=== PATIENT | male | born 1955 | race Caucasian/White ===

== ENCOUNTER → 2020-12-02 | Outpatient (CLI) | payer MEDICARE, OTHER ==
--- NOTE | 2020-12-02 15:41 | KCIC ---
PQRS Compliance Statement: One or more of the following individualized dose reduction techniques were utilized for this examinat ion: 1. Automated exposure control 2. Adjustment of the mA and/or kV according to patient size 3. Use of iterative reconstruction technique CT LOW DOSE LUNG SCREEN 12/02/2020 9:30 AM Indication: Smoker for 50 years COMPARISON: None available. TECHNIQUE: Multiple axial CT images of the chest were obtained without intravenous contrast utilizing low-dose technique. Coronal and sagittal reformats are provided. FINDINGS: 6 mm solid noncalcified pulmonary nodule identified within the right middle lobe (series 3, image 252 ). 3 mm subpleural solid noncalcified pulmonary nodule identified in the right middle lobe (series 3, image 358). There is an 8 x 6 mm solid noncalcified pulmonary nodule in the left upper lobe (series 3, image 155). 7 mm solid noncalcified pulmonary nodule identified along the left major fissure. Mild paraseptal pulmonary emphysema in the upper lobes. No pleural effusions, pulmonary vascular congesti on or pneumothorax. Mild bronchial wall thickening compatible with nonspecific bronchitis. Thyroid gl and is normal in appearance. Heart size is within normal limits. Three-vessel coronary artery vascula r calcifications are present. Ascending thoracic aorta is normal in caliber. Within the limitations o f a noncontrast examination, there are no pathologically enlarged lymph nodes within the thorax. Left axillary lymph node is mildly rounded measuring 7 mm. Calcified left hilar lymph nodes suggest seque la prior granulomatous exposure. Mild hepatic steatosis. Cholecystectomy changes are present. No susp icious osseous abnormality is identified. IMPRESSION: There is an 8 x 6 mm solid noncalcified pulmonary nodule in the left upper lobe. Lung RADS category 4 A, suspicious. 3 month follow-up low dose chest CT versus PET/CT is recommended. Mild bronchitis and mild pulmonary emphysema compatible with COPD changes. Three-vessel coronary artery vascular calcifications are present. Electronically signed by: Yris Lundberg MD (12/02/2020 3:39 PM) [id number]
== END ==
LOC: KCIC CT 09:31
PROVIDERS: ATTEND Family Medicine
DX: J43.9 Emphysema, unspecified (principal); J40 Bronchitis, not specified as acute or chronic; R91.1 Solitary pulmonary nodule; I25.10 Atherosclerotic heart disease of native coronary artery without angina pectoris; F17.210 Nicotine dependence, cigarettes, uncomplicated; Z71.6 Tobacco abuse counseling
CPT/HCPCS: 71271

== ENCOUNTER → 2021-03-21 | Outpatient (CLI) | payer MEDICARE, OTHER ==
--- NOTE | 2021-03-21 16:13 | KCIC ---
EXAM: Chest CT without intravenous contrast. HISTORY: Cigarette smoking. Lung nodule follow-up. TECHNIQUE: Computed tomographic images of the chest were obtained without contrast. Multiplanar refor matting was performed. *One or more of the following individualized dose reduction techniques were utilized for this examina tion: 1. Automated exposure control. 2. Adjustment of the mA and/or kV according to patient size. 3. Use of iterative reconstruction technique. COMPARISON: 12/02/2020. FINDINGS: There is an 8 mm nodule within the left upper lobe, (series 6, image 76 and 77). This is sl ightly less solid compared to the prior exam. The overall volume is also slightly decreased when allo wing for differences in slice position and measurement technique. There are stable 7 mm and 5 mm nodu les within the left pleural fissure, likely due to fissural lymph nodes. There is a stable 2 mm nodul e within the medial right upper lobe (series 6, image 83). There is a stable 4 mm nodule within the r ight minor pleural fissure, likely a fissural lymph node. There is a stable 2 mm pleural-based nodule within the anterior right middle lobe (series 6, image 168). There is mild emphysema with biapical pleural parenchymal scarring and subpleural bleb formation. The re is no pneumothorax. There are few nonspecific peripheral groundglass opacities which are likely po stinflammatory or postinfectious. There are calcified granulomas. There is stable axillary, a central and hilar lymph nodes. There is no suspicious lymphadenopathy. There is calcified atherosclerotic pl aque involving the coronary arteries. There is a stable mildly dilated ascending aorta measuring 3.9 cm. The gallbladder is surgically absent. There are splenic granulomas. There is no acute finding inv olving the upper abdomen. There is no acute or suspicious osseous finding. IMPRESSION: 1. Multiple pulmonary nodules, the largest of which measures 8 mm within the left upper lobe. This is slightly less solid compared to the prior exam, favoring benignity. Given the nodule size, repeat fo llow-up in 3-6 months is recommended. 2. Multiple additional smaller stable pulmonary nodules, described above. Attention at the time of fo llow-up is recommended. 3. Pulmonary emphysema. 4. Stable mildly dilated ascending aorta measuring 3.9 cm. Electronically signed by: Jennifer Huffman MD (03/21/2021 4:10 PM) [id number]
== END ==
LOC: KCIC CT 15:43
PROVIDERS: ATTEND Internal Medicine Pulmonary Disease
DX: R91.8 Other nonspecific abnormal finding of lung field (principal); J43.9 Emphysema, unspecified; J98.4 Other disorders of lung; I25.10 Atherosclerotic heart disease of native coronary artery without angina pectoris
CPT/HCPCS: 71250

== ENCOUNTER → 2021-10-05 | Outpatient (CLI) | payer MEDICARE, OTHER ==
--- NOTE | 2021-10-06 09:02 | KCIC ---
EXAM: CT CHEST WITHOUT CONTRAST HISTORY: Lung nodule, smoker for 50 years 1 pack per day COMPARISON: Chest radiograph 03/21/2021 TECHNIQUE: Helical CT of the chest performed without contrast. Coronal and sagittal reformats were o btained. One or more of the following individualized dose reduction techniques were utilized for this examinat ion: 1. Automated exposure control 2. Adjustment of the mA and/or kV according to patient size 3. Use of iterative reconstruction technique. FINDINGS: Thyroid gland and thoracic inlet: Normal. Heart and great vessels: The heart is normal in size. There are coronary artery calcifications. The t horacic aorta is normal caliber. Mediastinum and ирина: No mediastinal or hilar lymphadenopathy. Lungs and pleura: The 7 mm semisolid nodule in the left upper lobe abutting a vessel is unchanged (im age 89) . 7 mm and 4 mm solid noncalcified nodule along the left major fissure are unchanged (image 154). A 4 mm solid noncalcified pulmonary nodule along the minor fissure is unchanged (image 186). Th ere is a calcified granuloma in the left lower lobe. No pleural effusion or pneumothorax. There is mi ld diffuse airway wall thickening. Minimal paraseptal emphysema in the lung apices. Chest wall and axillae: No axillary lymphadenopathy. Upper abdomen: Surgical changes of cholecystectomy. Bones: No acute osseous abnormality. IMPRESSION: Stable small pulmonary nodules measuring up to 7 mm in the left upper lobe. Given the pat ient's smoking history, recommend continued annual screening with low-dose CT of the chest. Electronically signed by: Samantha Watson MD (10/06/2021 9:00 AM) [id number]
== END ==
LOC: KCIC CT 14:35
PROVIDERS: ATTEND Internal Medicine Pulmonary Disease
DX: R91.8 Other nonspecific abnormal finding of lung field (principal); J84.10 Pulmonary fibrosis, unspecified; J43.9 Emphysema, unspecified; I25.10 Atherosclerotic heart disease of native coronary artery without angina pectoris; Z90.49 Acquired absence of other specified parts of digestive tract; Z71.6 Tobacco abuse counseling
CPT/HCPCS: 71250